=== PATIENT | female | born 1985 | race Caucasian/White ===

== ENCOUNTER 2020-02-22 11:56 | Emergency (ER) | payer OTHER, SELFPAY ==
[2020-02-22 12:18] VITALS: BP 132/76; PULSE 94; RESP 20; TEMP 36.6; O2SAT 98
--- NOTE | 2020-02-22 12:46 | ED.URI ---
HPI - URI/Sore Throat General Chief Complaint: Upper Respiratory Infection Stated Complaint: sore throat/sinus drainage Time Seen by Provider: 02/22/20 12:46 Source: patient and RN notes reviewed Mode of arrival: ambulatory Limitations: no limitations History of Present Illness HPI Narrative: 34 year old female who presents to [facility] are with complaints of sinus congestion with drainage, sore throat and bilateral ear pain for the past 3-4 days. Patient denies any known fevers, chills, or sweats, denies any cough or any incidence of any shortness of breath. Patient states that she has been taking some EMERG C and using Flonase for nasal drainage, has not taken any decongestants, or any Ibuprofen or Tylenol. MD elicited complaint: sore throat, rhinorrhea, nasal congestion and other (ear pain) Pertinent past history: other (anemia) Onset (ago): day(s) (3-4 days) Consistency: intermittent Severity: mild Pain scale (0-10): 2 Description of mucous: clear Able to tolerate fluids by mouth: Yes Exacerbating factors: swallowing Relieving factors: nothing Associated symptoms: rhinorrhea, nasal congestion, sore throat and ear pain Treatments prior to arrival: other (flonase, EMERG C) Related Data Home Medications Medication Instructions Recorded Confirmed ferrous sulfate 324 mg PO DAILY 02/22/20 02/22/20 pediatric multivitamin no.101 1 tablet PO DAILY 02/22/20 02/22/20 [Kids' Gummy] Allergies Allergy/AdvReac Type Severity Reaction Status Date / Time No Known Allergies Allergy Verified 02/22/20 12:35 Review of Systems Review of Systems: Narrative: CONSTITUTIONAL: Denies fever, chills, or sweats. EYES: Denies visual changes, redness, or discharge. ENT: Positive rhinorrhea, congestion, sore throat, or otalgia. CARDIOVASCULAR: Denies chest pain, palpitations, or edema. RESPIRATORY: Denies cough or dyspnea. GASTROINTESTINAL: Denies abdominal pain, nausea, vomiting, or diarrhea. GENITOURINARY: Denies dysuria or hematuria. SKIN: Denies rash or itching. MUSCULOSKELETAL: Denies back pain, joint pain, or myalgia. NEUROLOGIC: Denies headache, numbness, or weakness. PSYCHIATRIC: Denies anxiety or depression. All systems reviewed & are unremarkable except as noted in HPI and below PMFSH Past Medical History Medical History (Updated 02/22/20 @ 13:21 by Yvrose Cueva NP) Anemia Social History Social History (Updated 02/22/20 @ 13:25 by Yvrose Cueva NP) Smoking status: Never smoker Living arrangements: with family Gender identity (if verbalized by the patient): Female Comments At time of signature, agree with nursing past medical, social history. There is no relevant family history pertinent to the presenting complaint Exam Narrative: Exam Narrative: GENERAL: Well-appearing, well-nourished, and in no acute distress. HEAD: Normocephalic, atraumatic. EYES: PERRLA and EOMI. ENT: Nares red, clear rhinorrhea or epistaxis. Mucous membranes moist.TM's normal with good light reflex, throat has some redness noted, no swelling lesions or tonsil enlargement, post nasal drainage noted. NECK: Supple.no lymphadenopathy CHEST: Clear to auscultation. No respiratory distress.SAO2 98% HEART: Regular rate and rhythm. No murmur heard. Normal peripheral pulses. ABDOMEN: Soft, nontender, nondistended, normal active bowel sounds. EXTREMITIES: Normal range of motion. No edema. SKIN: Warm, dry, no rash. NEURO: No focal deficits. Alert and oriented x3. Course Vital Signs Vital signs: Vital Signs Temperature 36.6 C 02/22/20 12:18 Pulse Rate 94 02/22/20 12:18 Respiratory Rate 20 02/22/20 12:18 Blood Pressure 132/76 02/22/20 12:18 Pulse Oximetry 98 02/22/20 12:18 Temperature 36.6 C 02/22/20 12:18 Pulse Rate 94 02/22/20 12:18 Respiratory Rate 20 02/22/20 12:18 Blood Pressure 132/76 02/22/20 12:18 Pulse Oximetry 98 02/22/20 12:18 MDM - URI/Sore Throat Differential Diagnosis Differential diag
== END 2020-02-22 13:00 | disposition home or self-care (01) ==
PROVIDERS: Emergency Provider Registered Nurse
DX: J06.9 Acute upper respiratory infection, unspecified (principal); D64.9 Anemia, unspecified
CPT/HCPCS: 87081; 87880; 99213; G0463